=== PATIENT | male | born 1965 | race Caucasian/White ===

== ENCOUNTER 2022-12-27 11:26 | Emergency (ER) | payer OTHER, SELFPAY ==
[2022-12-27 11:27] VITALS: BP 125/80; PULSE 74; RESP 16; TEMP 36.2; O2SAT 100; BMI 37.8
--- NOTE | 2022-12-27 12:00 | CT_ITS ---
STUDY: CT ABDOMEN AND PELVIS WITH CONTRAST REASON FOR EXAM: Male, 57 years old. RLQ abdominal pain RADIATION DOSAGE (If Supplied By Facility): CTDIvol = ( 14.13 ) mGy, DLP = ( 1134.89 ) mGycm TECHNIQUE: Transaxial images were obtained from the dome of the diaphragm to the symphysis pubis without oral contrast. IV 100mL Isovue-300 was administered. Sagittal and coronal images were reconstructed. Individualized dose optimization techniques were used for this CT. COMPARISON: None. FINDINGS: The visualized lung bases are unremarkable. The visualized portions of the heart are within normal limits. There is decreased attenuation of the liver consistent with steatosis. Normal gallbladder and extrahepatic biliary system. Normal spleen. Normal pancreas. Normal bilateral adrenal glands. Normal right kidney. There is a 6.7 cm 6.6 on your cyst in the upper pole of the left kidney. Normal visualized stomach. Normal small intestine. There are multiple colonic diverticula consistent with diverticulosis. The appendix is visualized and appears normal. Normal abdominal aorta. Normal inferior vena cava. Normal retroperitoneum. Distended urinary bladder. The prostate measures 4.3 cm by 5.7 cm. This causes indentation of the bladder base. There is a small umbilical hernia containing fat. There are degenerative changes of the visualized lumbar spine. CT/Abdomen/Pelvis W IV Cont ONLY IMPRESSION: Fatty infiltration of the liver. Left renal cyst. Sigmoid diverticulosis with no radiographic evidence of diverticulitis. Electronically Signed: Chang Castano MD at 12:56 EDT ,
--- NOTE | 2022-12-27 12:05 | EX.ED.DYSGE1 ---
HPI <MARIVEL Lin - Last Filed: 12/27/22 15:46> History of Present Illness Chief Complaint: Abd Pain Narrative Narrative: Patient is a 57-year-old male who currently does not have a PCP who does not take any medications daily who presents to the emerged part with a right lower abdominal pain, right testicular pain. Patient states this started in his right lower abdomen this morning, he was lifting multiple things secondary to leaving for vacation tomorrow however he states the pain came on dull. When the patient rest back and lays down the pain is minimal. Patient states that when he walks the pain gets worse, does shoot into his testicle. He denies any difficulty urinating, denies any fever or chills. No history of any abdominal surgeries PFS <MARIVEL Lin - Last Filed: 12/27/22 15:46> [facility] Medical History no medical history Home Medications NK 12/27/22 [History Last Taken Unknown] ondansetron 4 mg disintegrating tablet 4 mg PO Q8H PRN PRN Nausea #10 tabs 12/27/22 [Rx Last Taken Unknown] oxycodone-acetaminophen 5 mg-325 mg tablet (Percocet) 1 tab PO Q8H PRN pain 3 days #10 tabs 12/27/22 [Rx Last Taken Unknown] Allergy/AdvReac Type Severity Reaction Status Date / Time No Known Allergies Allergy Verified 12/27/22 11:29 Surgical History no surgical history Social History Smoking Status: Never smoker ROS <MARIVEL Lin - Last Filed: 12/27/22 15:46> ROS ED ROS Narrative Constitutional: Negative for fever, chills, weight loss, weakness Eyes: Negative for vision loss, vision change, double vision ENT: Negative for any sore throat, ear pain, congestion Cardiovascular: Negative for any chest pain, tightness, palpitations Respiratory: Negative for any cough, sputum production, hemoptysis, dyspnea, dyspnea on exertion, orthopnea Gastrointestinal: Negative for any nausea, vomiting, diarrhea, constipation, blood in stool, blood in vomit. Positive for abdominal pain : Negative for any urinary frequency, dysuria, retention, blood in urine. Positive for right testicular pain Muscle skeletal: Negative for any muscle joint pain, stiffness, myalgias, arthralgias, neck pain, back pain Neurological: Negative for any headache, syncope, numbness or tingling, dizziness Skin: Negative for any rashes, lumps, itching, abrasions, lacerations Psychiatric: Negative for any depression, anxiety, stress, suicidal ideation, homicidal ideation Hematologic: Negative for any easy bruising, excessive bruising, easy bleeding Allergies: Negative for any eczema, hives, rash EXAM <MARIVEL Lin - Last Filed: 12/27/22 15:46> Physical Exam Narrative Exam Narrative: Vital signs reviewed. HEET: Head normocephalic atraumatic, TMs clear bilaterally. Posterior pharynx is clear, moist mucous membranes. Nares clear bilaterally. Neck: Supple with no lymphadenopathy or tenderness. No signs of meningismus, negative jolt sign. Cardiac: Regular rate and rhythm no murmurs gallops or rubs, equal peripheral pulses bilaterally. Respiratory: Lungs clear to auscultation bilaterally. No chest tenderness. Abdomen: Soft, nondistended. No abdominal bruit or pulsatile masses. No hepatosplenomegaly. Patient has pain to the right lower quadrant worse when he is standing. Worse with deep palpation. Extremities: No peripheral edema, no signs of gross trauma or deformity. Active full range of motion of all extremities. Neuro: Cranial nerves II through XII intact, no focal neurological deficits. Skin: Clean dry and intact with no rash, purpura, petechiae, vesicles or pustules. Backs/flank: No CVA tenderness, no midline spinal tenderness, no deformity. Psych: Normal mood and affect. No SI, HI or acute psychosis. : Patient's testicular exam was completed, patient had minimal pain on palpation of the right testicle, negative for any inguinal hernia, low suspicion of any testicular torsion Const Vital Signs: 12/27/22 11:27 12/27/22 15:35 Temperature 97.1 F L Temperature Source Temporal Pulse Rate 74 Respiratory Rate 16 16 Blood Pressure 125/80 H Blood Pressure Mean 95 Pulse Ox 100 Oxygen Delivery Method Room Air Positive well nourished and well developed General Appearance ED: well developed <Dr. Stuart Campbell MD - Last Filed: 12/27/22 15:46> Physical Exam Const Vital Signs: 12/27/22 11:27 12/27/22 15:35 Temperature 97.1 F L Temperature Source Temporal Pulse Rate 74 Respiratory Rate 16 16 Blood Pressure 125/80 H Blood Pressure Mean 95 Pulse Ox 100 Oxygen Delivery Method Room Air [facility] <MARIVEL Lin - Last Filed: 12/27/22 15:46> [facility] Lab Data Labs: Laboratory Results - last 24 hr 12/27/22 12/27/22 12:18 12:44 WBC 13.4 H RBC 5.12 Hgb 15.1 Hct 45.3 MCV 88.5 MCH 29.5 MCHC 33.3 RDW Std Deviation 39.7 RDW Coeff of Lou 12.2 Plt Count 261 MPV 10.4 Immature Gran % (Auto) 0.400 Neut % (Auto) 83.6 H Lymph % (Auto) 10.9 L Clayton % (Auto) 4.4 Eos % (Auto) 0.4 Baso % (Auto) 0.3 Absolute Neuts (auto) 11.2 H Absolute Lymphs (auto) 1.46 Nucleated RBC % 0 Sodium 138 Potassium 4.1 Chloride 106 Carbon Dioxide 26.0 Anion Gap 6 BUN 13 Creatinine 0.95 Estim Creat Clear Calc 64.99 Est GFR (MDRD) Af Amer 106 Est GFR (MDRD) Non-Af 88 BUN/Creatinine Ratio 13.7 Glucose 101 Calcium 9.1 Total Bilirubin 0.60 AST 19 ALT 46 Alkaline Phosphatase 72 Total Protein 7.4 Albumin 3.8 Globulin 3.6 Albumin/Globulin Ratio 1.1 Lipase 23 Urine Color Yellow Urine Clarity Clear Urine pH 6.5 Ur Specific [place] 1.010 Urine Protein Negative Urine Glucose (UA) Normal Urine Ketones 5 H Urine Occult Blood 10 H Urine Nitrite Negative Urine Bilirubin Negative Urine Urobilinogen Normal Ur Leukocyte Esterase Negative Urine RBC 0 SEEN Urine WBC 0-5 SEEN Ur Squamous Epith Cells 0-5 SEEN Urine Bacteria 0 SEEN Urine Mucus 0 SEEN Radiography Diagnostic Testing: Clinical Impression(s) from Imaging Studies Abdomen/Pelvis CT 12/27/22 12:00 IMPRESSION: Fatty infiltration of the liver. Left renal cyst. Sigmoid diverticulosis with no radiographic evidence of diverticulitis. Electronically Signed: Chang Castano MD at 12:56 EDT , Testicular Ultrasound 12/27/22 14:08 IMPRESSION: Normal bilateral testicles. Electronically Signed: Chang Castano MD at 14:54 EDT , Treatment and Re-Evaluation :: All radiologic examinations were read, reviewed by the emergency department attending. From these reads, a plan of care will be put in place. Patient appears generally well, patient appears nontoxic, vital signs are stable. Patient presents to the emergency department with complaints of right lower quad abdominal pain. Patient received a full abdominal work-up concerning for any obstructing renal calculus, acute appendicitis. Patient was given IV fluids, IV Zofran, IV morphine Patient laboratory values showed a slight leukocytosis with a white blood count of 13.4. Patient's CMP was grossly unremarkable. Patient's urinalysis was negative for any infection. Patient's CT scan of the abdomen pelvis concerning for any hernia, acute appendicitis shows a fatty infiltration of liver. A left renal cyst that measures 6.7 x 6.6 by did let the patient know about, sigmoid diverticulosis with no radiographic evidence of diverticulitis. Secondary to this finding of a mostly negative CAT scan, the patient will receive a ultrasound of the testicles to rule out any torsion, epididymitis. Patient is agreeable with the plan. Patient's testicular exam/ultrasound was grossly unremarkable. At this time, Zara patient suffering from muscle skeletal abdominal pain. There is no evidence of any acute appendicitis, diverticulitis, bowel obstruction, torsion, epididymitis. Patient will be given Percocet, Zofran for home. He will follow-up with a PCP, for basic needs as well as his renal cyst on the left side. He is agreeable. All questions answered <Dr. Stuart Campbell MD - Last Filed: 12/27/22 15:46> [facility] Lab Data Labs: Laboratory Results - last 24 hr 12/27/22 12/27/22 12:18 12:44 WBC 13.4 H RBC 5.12 Hgb 15.1 Hct 45.3 MCV 88.5 MCH 29.5 MCHC 33.3 RDW Std Deviation 39.7 RDW Coeff of Lou 12.2 Plt Count 261 MPV 10.4 Immature Gran % (Auto) 0.400 Neut % (Auto) 83.6 H Lymph % (Auto) 10.9 L [place] % (Auto) 4.4 Eos % (Auto) 0.4 Baso % (Auto) 0.3 Absolute Neuts (auto) 11.2 H Absolute Lymphs (auto) 1.46 Nucleated RBC % 0 Sodium 138 Potassium 4.1 Chloride 106 Carbon Dioxide 26.0 Anion Gap 6 BUN 13 Creatinine 0.95 Estim Creat Clear Calc 64.99 Est GFR (MDRD) Af Amer 106 Est GFR (MDRD) Non-Af 88 BUN/Creatinine Ratio 13.7 Glucose 101 Calcium 9.1 Total Bilirubin 0.60 AST 19 ALT 46 Alkaline Phosphatase 72 Total Protein 7.4 Albumin 3.8 Globulin 3.6 Albumin/Globulin Ratio 1.1 Lipase 23 Urine Color Yellow Urine Clarity Clear Urine pH 6.5 Ur Specific [place] 1.010 Urine Protein Negative Urine Glucose (UA) Normal Urine Ketones 5 H Urine Occult Blood 10 H Urine Nitrite Negative Urine Bilirubin Negative Urine Urobilinogen Normal Ur Leukocyte Esterase Negative Urine RBC 0 SEEN Urine WBC 0-5 SEEN Ur Squamous Epith Cells 0-5 SEEN Urine Bacteria 0 SEEN Urine Mucus 0 SEEN Radiography Diagnostic Testing: Clinical Impression(s) from Imaging Studies Abdomen/Pelvis CT 12/27/22 12:00 IMPRESSION: Fatty infiltration of the liver. Left renal cyst. Sigmoid diverticulosis with no radiographic evidence of diverticulitis. Electronically Signed: Chang Castano MD at 12:56 EDT , Testicular Ultrasound 12/27/22 14:08 IMPRESSION: Normal bilateral testicles. Electronically Signed: Chang Castano MD at 14:54 EDT , Treatment and Re-Evaluation Comments:: I have personally performed a face to face assessment of the patient and have reviewed the ZAINA Note. I performed a substantive portion of the visit including all aspects of the following. My christianson findings include: History: Patient presents with right lower quadrant pain. It did not go to the posterior flank but did radiate toward the testicle but now it is just in the right lower quadrant. When he stands up it hurts a lot but when he lays down he has essentially no pain. No nausea vomiting fevers or chills. No history of prior abdominal surgery. Exam: Patient is awake alert no acute distress. Abdomen shows minimal tenderness if any in the right lower quadrant. No notable testicular tenderness. Just minimal. But no swelling or abnormal lie. There is no hernia including with straining or coughing. No CVA tenderness Medical Decision Making: CT, ultrasound blood work and urine are showing no acute process. He does have a significant musculoskeletal component. Discharge Plan Triage Chief Complaint: Abd Pain ED Midlevel Provider: Chuy Ott ED Provider: Stuart Campbell Dx/Rx/DC Orders Clinical Impression: Renal cyst, Abdominal pain, Abdominal wall strain Prescriptions: New oxycodone-acetaminophen [Percocet] 5-325 mg tablet 1 tab PO Q8H PRN (Reason: pain) 3 Days Qty: 10 0RF ondansetron 4 mg tablet,disintegrating 4 mg PO Q8H PRN PRN (Reason: Nausea) Qty: 10 0RF No Action NK Primary Care Provider: Care Physician,No Primary Referrals: Karin Graham DO [Med Staff - Active Staff] - NOT,DEFINED [Non-Staff] - Activity Restrictions/Additional Instructions: You are to follow-up with your PCP given here. You need to talk with them regarding your 6 cm renal cyst on your left side. Return for worsening pain Disposition Disposition: Home, Self Care Discharge Date/Time: 12/27/22 15:35
[2022-12-27] MEDS: 0.9% Normal Saline 1,000 ML 1000 ML IV (12:25)
[2022-12-27] MEDS: Ondansetron 4 MG/2 ML Vial IV (12:26)
[2022-12-27] MEDS: Morphine 4 MG/ML Syringe IV (12:26)
[2022-12-27 12:32] LABS: Absolute Lymphocyte Count 1.46 X10^3/uL (0.83-4.51); Absolute Neutrophil Count 11.2 X10^3/uL (2.0-7.7); Basophil# 0.04 X10^3/uL; Basophil% 0.3 % (0-1); Eosinophil# 0.05 X10^3/uL; Eosinophils% 0.4 % (0-5); Hematocrit 45.3 % (40-54); Hemoglobin 15.1 g/dL (13.0-16.5); Lymphocyte # 1.46 X10^3/ul (0.83-4.51); Lymphocyte % 10.9 % (19-41); Mean Corp Hgb Conc 33.3 g/dL (32-36); Mean Corpuscular Hgb 29.5 pg (27.0-32.0); Mean Corpuscular Volume 88.5 fL (80-94); Mean Platelet Vol. 10.4 fl (6.2-12.0); Monocyte# 0.59 X10^3/uL; Monocyte% 4.4 % (0-10); NRBC Flagged by Analyzer 0 % (0-5); Neutrophil # 11.21 X10^3/uL (2.7-7.7); Neutrophil % 83.6 % (47-70); Platelet Count 261 K/mm3 (150-450); RBC Distribution Width CV 12.2 % (11.6-14.6); RBC Distribution Width SD 39.7 fl (35.1-43.9); Red Blood Count 5.12 M/mm3 (4.6-6.2); White Blood Count 13.4 K/mm3 (4.4-11.0)
[2022-12-27 12:51] LABS: Bacteria 0 SEEN /hpf (None Seen); Mucous, Urine 0 SEEN /hpf (<or=2+); Red Blood Cells-Urine 0 SEEN /hpf (0-5)
[2022-12-27 12:54] LABS: ALB/GLOB Ratio 1.1 RATIO (0.9-2.4); AST(SGOT) 19 U/L (15-37); Alanine Aminotransfer ALT/SGPT 46 U/L (16-61); Albumin, Serum 3.8 g/dL (3.2-5.0); Alkaline Phosphatase 72 U/L (45-117); Anion Gap 6 (5-15); BUN 13 mg/dL (7-18); BUN/Creat Ratio 13.7 RATIO (10-20); Calcium,Total 9.1 mg/dL (8.5-10.1); Chloride 106 mmol/L (98-107); Creatinine, Serum 0.95 mg/dL (0.70-1.30); EST Glomerular Filtration Rate 88 mL/min (>60); Est Glom Filt Rate - Afr Amer 106 mL/min (>60); Estimated Creatinine Clearance 64.99 ml/min; Globulin 3.6 g/dL (2.2-4.2); Glucose 101 mg/dL (74-106); Lipase 23 U/L (13-75); Potassium 4.1 mmol/L (3.5-5.1); Protein, Total 7.4 g/dL (6.4-8.2); Sodium Level 138 mmol/L (136-145)
[2022-12-27 12:55] LABS: Color, Urine Yellow (Yellow); Glucose, Dipstick Normal (Normal); Ketone-Dipstick 5 mg/dl (Negative); Leukocyte Esterase-Dipstick Negative /ul (Negative); Nitrite-Dipstick Negative (Negative); Occult Blood-Urine 10 /ul (Negative); Protein-Dipstick Negative (Negative); Urine Bilirubin Dipstick Negative (Negative); Urine Clarity Clear (Clear); Urine Urobilinogen Normal (Normal); Urine pH 6.5 (5.0 - 8.0)
[2022-12-27 13:04] LABS: White Blood Cells 0-5 SEEN /hpf (0-5)
[2022-12-27 13:05] LABS: Squamous Epithelial Cells - UA 0-5 SEEN /hpf (0-5)
--- NOTE | 2022-12-27 14:08 | US_ITS ---
STUDY: SCROTUM ULTRASOUND REASON FOR EXAM: Male, 57 years old. Testicular pain. TECHNIQUE: Ultrasound evaluation of the scrotum was performed with color Doppler and static parra-scale imaging. COMPARISON: None. FINDINGS: RIGHT TESTICLE INTRATESTICULAR: There is a normal size of the right testicle. The right testicle measures 4.5 cm x 3.2 cm x 2.2 cm. There is a homogenous echotexture. There is normal arterial and normal venous vascularity. There is no demonstrated right testicular mass or cyst. EXTRATESTICULAR: The epididymis is normal in size. The epididymis head measures 1.4 cm x 1.1 cm x 0.9 cm. There is normal vascularity of the epididymis. There is no demonstrated epididymal cystic structure. There is no demonstrated hydrocele. There is no demonstrated varicocele. There is no demonstrated extratesticular mass or cyst. LEFT TESTICLE INTRATESTICULAR: There is a normal size of the left testicle. The left testicle measures 4.5 cm x 2.6 cm x 2.4 cm. There is a homogenous echotexture. There is normal arterial and normal venous vascularity. There is no demonstrated left testicular mass or cyst. EXTRATESTICULAR: The epididymis is normal in size. The epididymis head measures 0.8 cm x 1.5 cm x 0.9 cm. There is normal vascularity of the epididymis. There is no demonstrated epididymal cystic structure. There is no demonstrated hydrocele. There is no demonstrated varicocele. There is no demonstrated extratesticular mass or cyst. US/Testicular with Arterial Flow IMPRESSION: Normal bilateral testicles. Electronically Signed: Chang Castano MD at 14:54 EDT ,
[2022-12-27 15:35] VITALS: RESP 16
== END 2022-12-27 15:35 | disposition home or self-care (01) ==
PROVIDERS: Nurse Practitioner; Emergency Provider Emergency Medicine; Visit Provider Emergency Medicine
DX: N28.1 Cyst of kidney, acquired (principal); R10.31 Right lower quadrant pain; S39.011A Strain of muscle, fascia and tendon of abdomen, initial encounter; X58.XXXA Exposure to other specified factors, initial encounter
CPT/HCPCS: 74177; 76870; 80053; 81001; 83690; 85025; 93976; 96374; 96375; 99283; J7030; Q9967; A4216; J2405